=== PATIENT | male | born 1955 | race Caucasian/White ===

== ENCOUNTER 2021-01-01 06:22 | Day surgery (SDC) | payer MEDICARE, OTHER ==
[~2021-01-01] VITALS: Ht 193 cm; Wt 105.0 kg
[~2021-01-01 06:22] MED LIST: CALCA500CH PO; ENOX100I SQ; HYDACE5 PO; Norco 10-325 T1 EACH PO; OXYACE5T PO; SILD50TA PO; Vitamin C100 M1; XARELTO20 MG PO
[2021-01-01] MEDS ORDERED: ROSU10TA PO (07:06)
[2021-01-01] MEDS ORDERED: CLOP75 PO (10:34)
--- NOTE | 2021-01-01 11:47 | NUR ---
DISCHARGE PT REMAINED A&OX3 AND DENIED ANY PAIN DURING RECOVERY. RIGHT GROIN SITE REMAINS CDI-NO HEMATOMA NOTED-UNCHANGED. IV DC'D WITH CANULA IN TACT. PT ABLE TO DRESS SELF INDEPENDANTLY. DISCHARGE PAPERWORK GONE OVER WITH PT AND SPOUSE. PT AND SPOUSE VERBALLY STATED THE UNDERSTANDING OF THE DISCHARGE EDUCATION AND DENIED ANY QUESTIONS AT THIS TIME. PT REFUSED WHEELCHAIR-THIS NURSE WALK WITH HIM TO CAR WITH SPOUSE. NEW PRESCRIPTION CALLED INTO [facility].
== END 2021-01-01 11:45 | disposition home or self-care (01) ==
LOC: MHTC 06:22
DX: I70.223 Atherosclerosis of native arteries of extremities with rest pain, bilateral legs (principal)
CPT/HCPCS: 85347; 93005; 93010; 99152; 99153; C1725; C1760; C1761; C1769; C1874; C1887; C1894; J2250; J3010; J7030; J7040; J7050; Q9967

== ENCOUNTER 2022-06-18 08:53 | Day surgery (SDC) | payer MEDICARE, OTHER ==
[~2022-06-18] VITALS: Ht 193 cm; Wt 103.0 kg
[~2022-06-18 08:53] MED LIST changes: +ASPI81CH PO; +CLOP75 PO; +ROSU10TA PO; +TERB250 PO
[2022-06-18] MEDS ORDERED: PLAVIX75 MG PO (12:56)
--- NOTE | 2022-06-18 14:43 | NUR ---
PT UP AND WALKING ABOUT. L GROIN SITE STABLE. PT DRESSED PER SELF. SALINE LOCK REMOVED WITH CATHETER INTACT. DISCHARGE INSTRUCTIONS REVIEWED WITH PT AND , BOTH VERBALIZE UNDERSTANDING OF INSTRUCTIONS. PT REFUSED W/C OUT AND PREFERS TO WALK. PT DISCHARGED WITH TO [employer].
== END 2022-06-18 14:40 | disposition home or self-care (01) ==
LOC: MHTC 08:53
DX: I73.9 Peripheral vascular disease, unspecified (principal); I87.2 Venous insufficiency (chronic) (peripheral); E78.5 Hyperlipidemia, unspecified
CPT/HCPCS: 76937; 85347; 99152; 99153; C1714; C1725; C1769; C1874; C1887; C1894; C2623; J1644; J2250; J3010; J7030; J7040; Q9967

== ENCOUNTER 2022-08-13 07:01 | Day surgery (SDC) | payer MEDICARE, OTHER ==
[~2022-08-13] VITALS: Ht 193 cm; Wt 102.0 kg
[~2022-08-13 07:01] MED LIST changes: +PLAVIX75 MG PO
--- NOTE | 2022-08-13 11:44 | NUR ---
4 FR SHEATH PULLED FROM LEFT GROIN VENOUS SITE, MANUAL PRESSURE BEING HELD
--- NOTE | 2022-08-13 12:10 | NUR ---
MANUAL PRESSURE HELD TO LEFT GROIN FOR 10 MINUTES, SITE STABLE.
--- NOTE | 2022-08-13 12:29 | NUR ---
UP BACK AND FORTH TO AND FROM BATHROOM. LEFT GROIN SITE STABLE WITHOUT BLEEDING. PT DRESSED PER SELF. DISCHARGE REVIEWED WITH PT AND , BOTH VERBALIZE UNDERSTANDING OF INSTRUCTIONS.
--- NOTE | 2022-08-13 12:34 | NUR ---
L GROIN SITE REMAINS STABLE. PT DISCHARGED PER W/C WITH ONE STAFF.
== END 2022-08-13 13:39 | disposition home or self-care (01) ==
LOC: MHTC 07:01
DX: I70.211 Atherosclerosis of native arteries of extremities with intermittent claudication, right leg (principal); I70.92 Chronic total occlusion of artery of the extremities; J44.9 Chronic obstructive pulmonary disease, unspecified; E78.5 Hyperlipidemia, unspecified; Z87.891 Personal history of nicotine dependence; Z88.8 Allergy status to other drugs, medicaments and biological substances; Z79.02 Long term (current) use of antithrombotics/antiplatelets; Z79.01 Long term (current) use of anticoagulants; Z79.899 Other long term (current) drug therapy
CPT/HCPCS: 37220; 37227; 75716; 75774; 76937; 99152; 99153; C1714; C1725; C1760; C1769; C1874; C1887; C1894; C2623; J1644; J2250; J3010; J7030; J7050; Q9967